=== PATIENT | female | born 1940 | race Caucasian/White ===

== ENCOUNTER 2024-05-02 17:00 | Emergency (ER) | payer MEDICARE, OTHER ==
[~2024-05-02] VITALS: Ht 144.8 cm; Wt 68.2 kg
[2024-05-02 17:06] VITALS: TEMP 98.2
[2024-05-02] MEDS ORDERED: PREG75 PO (17:08)
[2024-05-02] MEDS ORDERED: METF-1211 PO (17:08)
[2024-05-02] MEDS ORDERED: OMEP20 PO (17:08)
[2024-05-02] MEDS ORDERED: VALE500C PO (17:08)
[2024-05-02 20:00] VITALS: BP 145/68; PULSE 72; RESP 17; O2SAT 96
== END 2024-05-03 00:50 | disposition home or self-care (01) ==
LOC: EMS 17:00
DX: S00.03XA Contusion of scalp, initial encounter (principal); H11.30 Conjunctival hemorrhage, unspecified eye; M25.531 Pain in right wrist; E11.9 Type 2 diabetes mellitus without complications; K21.9 Gastro-esophageal reflux disease without esophagitis; Z91.041 Radiographic dye allergy status; W22.8XXA Striking against or struck by other objects, initial encounter; Y93.89 Activity, other specified; Y92.89 Other specified places as the place of occurrence of the external cause; Y99.8 Other external cause status
CPT/HCPCS: 70450; 72040; 99284